=== PATIENT | male | born 2000 | race Caucasian/White ===

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

== ENCOUNTER 2021-11-10 00:08 | Emergency (ER) | payer BC, SELFPAY ==
[2021-11-10] VITALS (26 sets, daily range): BP systolic 125–129; BP diastolic 61–85; PULSE 78–121; RESP 14–29; TEMP 36.4–37.1; O2SAT 91–100
--- NOTE | 2021-11-10 00:30 | DI.CT_ITS ---
Exam(s) CT ABDOMEN PELVIS W EXAM: CT ABDOMEN PELVIS W CLINICAL HISTORY: epigastric pain, vomiting, eval GB TECHNIQUE: COMPARISON: No exams were available for comparison FINDINGS: CT examination of the abdomen and pelvis was performed with bolus infusion of 100 cc of Omnipaque 350 . Images obtained through the lung bases are unremarkable. The liver appears normal with no evidence of a focal mass. Spleen is unremarkable in appearance.. Gallbladder and bile ducts are unremarkable. Pancreas is unremarkable in appearance. Adrenals appear normal bilaterally. Kidneys appear normal with no evidence of renal mass, hydronephrosis, or nephrolithiasis. Urinary bl adder is nearly empty and cannot be evaluated.. There is no evidence of abdominal or pelvic adenopathy. Abdominal aorta is of normal diameter and no abnormality is seen involving major visceral branches.. Appendix is normal. No evidence diverticulitis or bowel obstruction. No significant abdominal wall hernia seen. Impression: Negative CT examination of the abdomen and pelvis. RADIATION DOSE DELIVERED: 1,268.25mGy.cm Total DLP 1,268.25mGy.cm Total DLP !Error CTDIvol DATA REPOSITORY: All CT scans at this facility are submitted to the National Radiology Data Registry (NRDR) Dose Index Registry (DIR) with the [employer] (ACR). RADIATION OPTIMIZATION: All CT scans at this facility use at least one of these dose optimization te chniques: automated exposure control; mA and/or kV adjustment per patient size (includes targeted exa ms where dose is matched to clinical indication); or iterative reconstruction.
--- NOTE | 2021-11-10 00:46 | ED.GENADUL_ITS ---
Discharge Plan Disposition Patient Disposition: HOME Condition: Good Discharge Details Clinical Impression: Enteritis ED Provider: Murray Méndez Home Meds and New Rx's Prescriptions: Continued albuterol sulfate [Ventolin HFA] 90 mcg/actuation Hfa Aerosol Inhaler 2 puff Inhalation PRN PRN0RF cyclobenzaprine 10 mg tablet 10 mg PO TID PRN (Reason: muscle spasm) Qty: 14 0RF ibuprofen [IBU] 600 mg tablet 600 mg PO QID PRN (Reason: pain) Qty: 20 0RF acetaminophen 500 mg Tablet 500 mg PO Q6H PRN0RF escitalopram oxalate [Lexapro] 20 mg Tablet 20 mg PO DAILY 0RF Discharge Instructions Instructions: Ondansetron (By mouth), Acute Nausea and Vomiting (ED) Additional Instructions: At this time your work-up is reassuring. You likely have a virus that caused the vomiting. Please drink plenty fluids and take the Zofran as needed for nausea. Stick with a bland liquid diet for the next 24 hours and gradually transition to crackers rice applesauce and bananas. If you notice any worsening of your symptoms, or any new symptoms such as vomiting, diarrhea, fever, chills, shortness of breath, chest pain, numbness, weakness, or fainting , please return immediately to the emergency department for reevaluation. Please follow up with your primary care provider as soon as possible for reassessment and reevaluation. As always, it was a pleasure participating in your medical care today. Medical Decision Making This is a 21-year-old male with a past medical history of reactive airway disease, who presents today for evaluation of vomiting. Patient states that about 2 PM he had some epigastric abdominal achiness, that at 10 PM he started vomiting. He has been vomiting continuously since then. He denies any blood. He denies any lower abdominal pain but does admit to generalized abdominal achiness. He states that he feels nauseous like he has been kicked in the testicles however he denies any significant groin pain. He and his female roommate have both eaten same things today but has had no shared side effects. He states that he gets like this when he drinks alcohol but he denies any recent alcohol use. He denies any fever. He denies any other complaints at this. Physical exam demonstrates epigastric abdominal tenderness, no scrotal tenderness. No testicular tenderness. Differential includes pancreatitis, gallbladder pathology, or gastroenteritis from a viral etiology. Will give Zofran, morphine for pain, get a CT scan of the abdomen, rehydrate, monitor closely and reassess 3 AM Patient's laboratory work-up has returned, does demonstrate an elevated white count 18, no bandemia. Electrolytes stable aside for slightly low potassium at 3.2. Anion gap slightly elevated at 15, white count is likely reactive from the vomiting at this time. Lipase normal. CT scan has returned and shows evidence of enteritis, with reactive mesenteric inflammation, however on reassessment the patient's pain has notably resolved. He has no history of atrial fibrillation, and has had no dysrhythmia here. On reassessment the patient demonstrates a notably nontender abdomen. Symptoms appear inconsistent with acute mesenteric ischemia. Patient has been able to tolerate p.o. well, he still feels slightly nauseous but is no longer vomiting. At this time with no evidence of appendicitis pancreatitis or significant gallbladder pathology, with resolution of his pain, and the ability to tolerate p.o. now, I do feel that the patient does not need any admission or surgical evaluation currently at this time based on current clinical assessment, exam, and history. Patient has been rehydrated with normal saline, he feels well. Patient will be discharged home with Zofran. Recommend bland diet, liquid diet for the next 24 hours, and Zofran as needed. Discussed red flags which to return. I have extensively reviewed the treatment plan and discharge instructions with the patient. I have addressed all patient concerns at this time. The patient was made aware of what symptoms to monitor for that would warrant a return to the emergency department. Discussed the plan with the patient, they demonstrate verbal understanding and agreement with our assessment and plan at this time. The documentation in this chart was dictated using [employer] dictation software. Please excuse any dictation errors. FINDINGS: Lungs: Lung bases are clear. Liver: Mild fatty liver. No suspicious mass. Gallbladder and bile ducts: Normal. No wall thickening. No inflammatory change. No calcified stones. No ductal dilation. Pancreas: Normal. No ductal dilation. Spleen: Normal. No splenomegaly. Adrenal glands: Normal. No mass. Kidneys and ureters: Normal. No hydronephrosis. Stomach and bowel: Unremarkable stomach. Nondilated small bowel. Fat planes around loops of small bowel are indistinct. There are no inflammatory changes observed around the colon. Appendix: Normal appendix, medial pelvis. Intraperitoneal space: Mild mesenteric fat stranding. No significant free fluid. Negative for free air. Negative for abscess. Arteries: Unremarkable. No abdominal aortic aneurysm. Lymph nodes: Mesenteric lymph nodes are mildly prominent. Negative for pathologic lymphadenopathy. Urinary bladder: Unremarkable as visualized. Reproductive: Unremarkable as visualized. Bones/joints: Unremarkable. No acute fracture. Soft tissues: Unremarkable. IMPRESSION: 1. Findings of enteritis with reactive mesenteric inflammation. 2. Normal gallbladder. Nondilated bile ducts. Thank you for allowing us to participate in the care of your patient. Dictated and Authenticated by: Vinnie Adams MD 11/10/2021 1:59 AM Eastern Time ([place] & [place]) HPI General Date/Time Provider Initiated Documentation: 11/10/21 00:27 . HPI Narrative: This is a 21-year-old male with a past medical history of reactive airway disease, who presents today for evaluation of vomiting. Patient states that about 2 PM he had some epigastric abdominal achiness, that at 10 PM he started vomiting. He has been vomiting continuously since then. He denies any blood. He denies any lower abdominal pain but does admit to generalized abdominal achiness. He states that he feels nauseous like he has been kicked in the testicles however he denies any significant groin pain. He and his female roommate have both eaten same things today but has had no shared side effects. He states that he gets like this when he drinks alcohol but he denies any recent alcohol use. He denies any fever. He denies any other complaints at this. Related Data Home Medications Medication Instructions Recorded Confirmed albuterol sulfate 90 mcg/actuation 2 puff INHALATION PRN PRN 07/05/18 11/10/21 aerosol inhaler (Ventolin HFA) cyclobenzaprine 10 mg tablet 10 mg PO TID PRN #14 tab 07/05/18 ibuprofen 600 mg tablet (IBU) 600 mg PO QID PRN #20 tab 07/05/18 11/10/21 acetaminophen 500 mg tablet 500 mg PO Q6H PRN 11/10/21 11/10/21 escitalopram oxalate 20 mg tablet 20 mg PO DAILY 11/10/21 11/10/21 (Lexapro) Previous Rx's Medication Instructions Recorded cyclobenzaprine 10 mg tablet 10 mg PO TID PRN #14 tab 07/05/18 ibuprofen 600 mg tablet (IBU) 600 mg PO QID PRN #20 tab 07/05/18 Allergies Allergy/AdvReac Type Severity Reaction Status Date / Time No Known Allergies Allergy Unverified 11/10/21 00:21 General Stated Complaint: Abd Prob FINA: 3 Review of Systems All systems reviewed & are unremarkable except as noted in HPI and below PFSH All Active Problems (Updated 11/10/21 @ 03:27 by Murray Méndez DO) Enteritis (Acute) Medical History Asthma Social History Smoking/Tobacco Use Status: Current every day Tobacco Type: e-cigarettes Smoking risk assessment performed?: Yes Alcohol Intake: current Alcohol Intake frequency: a few times a week Drug use: Occasionally Substance use type: marijuana Details: Vaped hours ago. Marijuana about 4 days ago. Do you feel safe at home: Yes Do you feel safe in your relationship?: Yes Exam Narrative Exam Narrative: 1.Const: Well-nourished, Well-developed, appearing stated age 2.Eyes: PERRL, no conjunctival injection, and symmetrical lids. 3.ENT: Atraumatic external nose and ears. Notably dry MM. Neck: Symmetric, trachea midline, No thyromegaly. 4.CVS: +S1/S2, No murmurs or gallops. Peripheral pulses 2+ and equal in all extremities. Brisk capillary refill in all extremities. 5.RESP: Unlabored respiratory effort. Clear to auscultation bilaterally. No wheezes rales or rhonchi 6.GI: Soft, no distention, mild voluntary epigastric guarding. Tenderness in the epigastric region equally throughout. No scrotal tenderness. Cremasteric reflex normal bilaterally. No penile tenderness 7.MSK: Normocephalic/Atraumatic, Extremities w/o deformity or ttp No cyanosis or clubbing, Normal movement of all extremities 8.Skin: Warm, Dry. No rashes or lesions. 9.Neuro: landfill grader II-XII grossly intact. Sensation grossly intact, no focal neurologic deficits. 10.Psych: (AAO) x3. Appropriate mood and affect Course Vital Signs Vital signs: Vital Signs Temperature 37.1 C 11/10/21 00:17 Pulse 121 H 11/10/21 00:17 Respiratory Rate 20 11/10/21 00:17 Blood Pressure 125/85 11/10/21 00:17 Pulse Oximetry 100 11/10/21 00:17 Temperature 37.1 C 11/10/21 00:17 Temperature Source Oral 11/10/21 00:17 Pulse 121 H 11/10/21 00:17 Respiratory Rate 20 11/10/21 00:17 Respiratory Effort 11/10/21 00:24 Blood Pressure 125/85 11/10/21 00:17 Blood Pressure Position Sitting 11/10/21 00:17 Pulse Oximetry 100 11/10/21 00:17 Oxygen Delivery Method Room Air 11/10/21 00:17 Oxygen Flow Rate 0 11/10/21 00:17 Pain Level 6 11/10/21 00:17 PAWSS Have you Been Recently Intoxicated or Drunk Within the Last 30 days?: No Have you Ever Experienced Previous Episodes of Alcohol Withdrawal?: No Have you ever Experienced Withdrawal Seizures?: No Have you ever Experienced Delirium Tremens(DT)s?: No Have you ever undergone Alcohol Rehabilitation Treatment (i.e, inpt ot outpatient treatment programs)?: No Have you ever Experienced Blackouts?: No Have you ever Combined Alcohol with other Downers within the last 90 days?: No Have you ever Combined Alcohol with any other Substance of Abuse during the last 90 days?: No Positive Blood Alcohol level on Presentation? [PCS.BAL]: No Evidence of Increased Autonomic Activity (i.e. HR>120, tremor, sweating, agitation, nausea)?: No Result: 0
[2021-11-10] MEDS: Normal Saline 1,000 ML 1000 ML IV ×2 (00:57→01:47)
[2021-11-10] MEDS: Ondansetron 4 MG/2 ML VIAL IVP ×2 (00:58→02:27)
[2021-11-10] MEDS: MORPHine 4 MG/ML SYR IVP (00:58)
[2021-11-10 01:07] LABS: Absolute Basophil Count 0.05 10^3/uL (0.0-0.2); Absolute Monocyte Count 1.63 10^3/uL (0.1-0.8); Basophils % 0.3; Eosinophils % 0.5; HCT 51.5 % (40.0-50.0); HGB 17.2 g/dL (13.5-17.5); Immature Grans % 0.5; MCH 29.3 pg (27.0-33.0); MCHC 33.4 % (32.0-36.0); MCV 87.7 fL (80-95); MPV 10.2 fL (8.0-11.0); Monocytes % 8.9; Neutrophils % 83.8; Platelet Count 401 10^3/uL (130-400); RBC 5.87 10^6/uL (4.36-5.78); RDW 13.1 % (11.8-14.1); RDW-SD 41.9 fL
[2021-11-10 01:10] LABS: Absolute Eosinophil Count 0.09 10^3/uL (0.0-0.7); Absolute Neutrophil Count 15.34 10^3/uL (1.2-6.7); Diff Comment Diff Reviewed; RBC Morphology Normal
[2021-11-10 01:22] LABS: ALT 43 U/L (16-63); AST 22 U/L (15-37); Albumin 4.7 g/dL (3.4-5.0); Alkaline Phosphatase 92 U/L (46-116); Anion Gap 15.2 mmol/L (3-11); BUN 13 mg/dL (7-18); Bilirubin, Total 0.4 mg/dL (0.2-1.0); CO2 23.8 mmol/L (21.0-32.0); CREATININE 1.3 mg/dL (0.70-1.30); Calcium 9.3 mg/dL (8.5-10.1); Chloride 102 mmol/L (98-107); Glucose 134 mg/dL (74-106); Lipase 65 U/L (73-393); Potassium 3.2 mmol/L (3.5-5.1); Sodium 141 mmol/L (136-145)
[2021-11-10 01:23] LABS: ETHANOL BLOOD < 3.0 mg/dL (<10)
[2021-11-10 01:28] LABS: Bilirubin Negative (Negative); Blood Trace-intact (Negative); Clarity Sl Cloudy (Clear); Glucose Negative (Negative); Ketones 80 mg/dL (Negative); Leukocyte Esterase Negative (Negative); Nitrite Negative (Negative); Urobilinogen 0.2 EU/dL (Up TO 0.2)
[2021-11-10 01:41] LABS: Epithelial Cells Rare HPF (Negative); Other Cells Rare Yeast (Negative)
[2021-11-10 01:42] LABS: Bacteria Moderate HPF (Negative); C & S Indicated? Yes; Casts Negative LPF (Negative); Crystals Negative HPF (Negative); Mucus Heavy (Negative)
[2021-11-10] MEDS: POTASSIUM CHLORIDE 20 MEQ/100 ML BAG 50 MEQ IVPB (01:47)
[2021-11-10] MEDS: Omnipaque 350 MG/ML 100 ML BTL IJ (01:49)
[2021-11-10] MEDS: Normal Saline Flush 10 ML SYR IVP (01:50)
--- NOTE | 2021-11-10 02:00 | DI.VRAD_ITS ---
PROCEDURE INFORMATION: Exam: CT Abdomen And Pelvis With Contrast Exam date and time: 11/10/2021 1:24 AM Age: 21 years old Clinical indication: Nausea and vomiting; Abdominal pain; Patient HX: Epigastric pain, vomiting, eval gb TECHNIQUE: Imaging protocol: Computed tomography of the abdomen and pelvis with contrast. Radiation optimization: All CT scans at this facility use at least one of these dose optimization techniques: automated exposure control; mA and/or kV adjustment per patient size (includes targeted exams where dose is matched to clinical indication); or iterative reconstruction. Contrast material: OMNIPAQUE 350; Contrast volume: 100 ml; Contrast route: INTRAVENOUS (IV); COMPARISON: CR XR lumbar spine complete 07/05/2018 5:38 PM FINDINGS: Lungs: Lung bases are clear. Liver: Mild fatty liver. No suspicious mass. Gallbladder and bile ducts: Normal. No wall thickening. No inflammatory change. No calcified stones. No ductal dilation. Pancreas: Normal. No ductal dilation. Spleen: Normal. No splenomegaly. Adrenal glands: Normal. No mass. Kidneys and ureters: Normal. No hydronephrosis. Stomach and bowel: Unremarkable stomach. Nondilated small bowel. Fat planes around loops of small bowel are indistinct. There are no inflammatory changes observed around the colon. Appendix: Normal appendix, medial pelvis. Intraperitoneal space: Mild mesenteric fat stranding. No significant free fluid. Negative for free air. Negative for abscess. Arteries: Unremarkable. No abdominal aortic aneurysm. Lymph nodes: Mesenteric lymph nodes are mildly prominent. Negative for pathologic lymphadenopathy. Urinary bladder: Unremarkable as visualized. Reproductive: Unremarkable as visualized. Bones/joints: Unremarkable. No acute fracture. Soft tissues: Unremarkable. IMPRESSION: 1. Findings of enteritis with reactive mesenteric inflammation. 2. Normal gallbladder. Nondilated bile ducts. Dictated and Authenticated by: Vinnie Adams MD. Ordering:THADDEUS Gao MD
[2021-11-10] MEDS: Ondansetron O.D.T. 4 MG TABEF, 3 TABS/BTL PO (03:36)
== END 2021-11-10 03:44 | disposition home or self-care (01) ==
PROVIDERS: Emergency Provider Student in an Organized Health Care Education/Training Program
DX: K52.9 Noninfective gastroenteritis and colitis, unspecified (principal); R10.13 Epigastric pain
CPT/HCPCS: 36415; 80053; 83690; 96361; 96365; 96366; 96375; 96376; 99285; 74177; 80320; 81003; 81015; 85025; 87086; 99284; J2270; J2405; J3480; J3490